=== PATIENT | female | born 1965 | race Caucasian/White ===

== ENCOUNTER 2020-04-06 06:03 | Day surgery (SDC) | payer OTHER ==
[~2020-04-06 06:03] MED LIST: ALBUTEROL SUL0.083 % IN; BUPROPN HCL300 MG PO; COLACE100 MG PO; CRESTOR20 MG PO; EPIPEN 2-P0.3 MG/0.3; FEROSUL325 MG PO; HYDROXYZINE HCL25 M1 PO; LISINOPRIL20 MG PO; LISINOPRIL5 MG PO; METFORMIN500 M2 PO; PROAIR DIG108 MCG/AC IN; TRELEGY ELLIPTA1 AER
[2020-04-06 08:21] VITALS: BP 136/80
[2020-04-21] MEDS ORDERED: ROSUVASTATIN CA40 MG PO (13:02)
[2020-04-21] MEDS ORDERED: DULOXETINE HCL60 MG PO (13:03)
== END 2020-04-06 08:50 | disposition home or self-care (01) ==
LOC: ENDO 06:03 → ORM 07:00 → ENDO 08:50
PROVIDERS: ATTEND Surgery
DX: K57.31 Diverticulosis of large intestine without perforation or abscess with bleeding (principal); D12.0 Benign neoplasm of cecum; D12.3 Benign neoplasm of transverse colon; K64.8 Other hemorrhoids; I10 Essential (primary) hypertension; F17.210 Nicotine dependence, cigarettes, uncomplicated; Z86.010 Personal history of colon polyps; Z11.59 Encounter for screening for other viral diseases

== ENCOUNTER 2020-05-31 07:45 | Emergency (ER) | payer MEDICARE, OTHER ==
[~2020-05-31] VITALS: Ht 164.3 cm; Wt 113.6 kg
[~2020-05-31 07:45] MED LIST changes: +DULOXETINE HCL60 MG PO; +ROSUVASTATIN CA40 MG PO
[2020-05-31] MEDS ORDERED: LORTAB 1010 MG PO (10:46)
[2020-05-31] MEDS ORDERED: FLEXERIL PO (10:47)
[2020-05-31 11:10] VITALS: BP 138/70
== END 2020-05-31 11:10 | disposition home or self-care (01) ==
LOC: ED 07:45
DX: S80.01XA Contusion of right knee, initial encounter (principal); E11.9 Type 2 diabetes mellitus without complications; I10 Essential (primary) hypertension; F17.210 Nicotine dependence, cigarettes, uncomplicated; X50.0XXA Overexertion from strenuous movement or load, initial encounter; Z79.84 Long term (current) use of oral hypoglycemic drugs

== ENCOUNTER 2024-04-11 09:11 | Emergency (ER) | payer MEDICARE, MEDICAID ==
[~2024-04-11] VITALS: Ht 162.6 cm; Wt 98.8 kg
[~2024-04-11 09:11] MED LIST changes: +BUPROPN HCL150 MG PO; -BUPROPN HCL300 MG PO; +FLEXERIL PO; +LORTAB 1010 MG PO; +LOSARTAN/HCT1 TA1 PO; +MOTRIN400 MG/TAB PO; +OZEMPIC2 MG; +PREDNISONE20 MG PO; +PROMETHAZINE HY25 M1 PO; +RABEPRAZOLE SOD20 MG PO; -ROSUVASTATIN CA40 MG PO; +RYBELSUS7 MG PO; +VALTREX1 GM PO; +VOLTAREN - GENE75 MG PO
[2024-04-11 09:23] VITALS: BP 144/64
[2024-04-11 09:31] VITALS: BP 136/68
[2024-04-11] MEDS ORDERED: NAPROXEN500 MG PO (09:43)
[2024-04-11 09:45] VITALS: BP 142/62
[2024-04-11 09:50] VITALS: BP 137/68
[2024-04-11 09:57] VITALS: BP 142/62
== END 2024-04-11 09:58 | disposition home or self-care (01) ==
LOC: ED 09:11
DX: S92.352A Displaced fracture of fifth metatarsal bone, left foot, initial encounter for closed fracture (principal); I10 Essential (primary) hypertension; E11.9 Type 2 diabetes mellitus without complications; E78.00 Pure hypercholesterolemia, unspecified; X50.9XXA Other and unspecified overexertion or strenuous movements or postures, initial encounter; Z87.442 Personal history of urinary calculi; Z72.0 Tobacco use

== ENCOUNTER 2024-04-20 08:20 | Emergency (ER) | payer MEDICARE, MEDICAID ==
[~2024-04-20] VITALS: Ht 162.6 cm; Wt 98.9 kg
[~2024-04-20 08:20] MED LIST changes: +NAPROXEN500 MG PO
[2024-04-20 08:29] VITALS: BP 136/82
[2024-04-20 08:30] VITALS: BP 156/79
[2024-04-20] MEDS ORDERED: CORTISPORIN OTI10 ML AD (08:39)
[2024-04-20] MEDS ORDERED: IBUPROFEN 800 MG/TAB PO ONE (08:40)
[2024-04-20 08:45] VITALS: BP 133/89
[2024-04-20 09:00] VITALS: BP 154/75
[2024-04-20 09:11] VITALS: BP 154/75
== END 2024-04-20 09:13 | disposition home or self-care (01) ==
LOC: ED 08:20
DX: H60.91 Unspecified otitis externa, right ear (principal); I10 Essential (primary) hypertension; E11.9 Type 2 diabetes mellitus without complications; E78.00 Pure hypercholesterolemia, unspecified; F17.210 Nicotine dependence, cigarettes, uncomplicated; Z87.442 Personal history of urinary calculi

== ENCOUNTER 2024-11-16 19:34 | Emergency (ER) | payer MEDICARE, MEDICAID ==
[2024-11-16] VITALS (10 sets, daily range): BP systolic 126–180; BP diastolic 47–79
[~2024-11-16] VITALS: Ht 162.6 cm; Wt 72.0 kg
[~2024-11-16 19:34] MED LIST changes: +CORTISPORIN OTI10 ML AD
== END 2024-11-16 23:26 | disposition home or self-care (01) ==
LOC: ED 19:34
DX: S92.515A Nondisplaced fracture of proximal phalanx of left lesser toe(s), initial encounter for closed fracture (principal); I10 Essential (primary) hypertension; E11.9 Type 2 diabetes mellitus without complications; E78.00 Pure hypercholesterolemia, unspecified; F17.210 Nicotine dependence, cigarettes, uncomplicated; W22.03XA Walked into furniture, initial encounter; Y92.009 Unspecified place in unspecified non-institutional (private) residence as the place of occurrence of the external cause; Z79.85 Long-term (current) use of injectable non-insulin antidiabetic drugs

== ENCOUNTER 2025-01-04 17:25 | Emergency (ER) | payer MEDICARE, MEDICAID ==
[~2025-01-04] VITALS: Ht 162.6 cm; Wt 80.8 kg
[2025-01-04] MEDS ORDERED: KETOROLAC TROMETHAMINE 30 MG/ML SDV IM ONE (18:15)
[2025-01-04 18:21] VITALS: BP 141/74
[2025-01-04 18:31] VITALS: BP 163/81
[2025-01-04 19:00] VITALS: BP 178/90
[2025-01-04 19:30] VITALS: BP 177/92
[2025-01-04 19:34] VITALS: BP 177/92
== END 2025-01-04 19:38 | disposition home or self-care (01) ==
LOC: ED 17:25
DX: M25.461 Effusion, right knee (principal); I10 Essential (primary) hypertension; E11.9 Type 2 diabetes mellitus without complications; E78.00 Pure hypercholesterolemia, unspecified; F17.210 Nicotine dependence, cigarettes, uncomplicated